=== PATIENT | male | born 1950 | race Caucasian/White ===

== ENCOUNTER 2017-12-12 13:20 | Observation (INO) | payer MEDICARE, OTHER ==
[2017-12-12 13:20] VITALS: BMI 30.4
--- NOTE | 2017-12-12 14:08 | ED PDOC ---
HPI: Hypertension/Hypotension Time Seen by Provider: 12/12/17 13:34 Chief Complaint (Nursing): Palpitations Chief Complaint (Provider): Palpitations History Per: Patient History/Exam Limitations: no limitations Current Symptoms Are (Timing): Still Present Additional Complaint(s): 67 year old male presents to the emergency department with a complaint of experiencing palpitations at home with a mild posterior neck pain that started this morning. then called EMS and when they arrived they found patient to have supraventricular tachycardia (SVT) (has occurred in the past) and treated with Adenosine which slowed down the rate but wind up having a atrial fibrillation rhythm which he had never experienced before. Patient was brought to our facility for further evaluation. Denies pain or discomfort, shortness of breath, chest pain, nausea, vomiting, or diarrhea. Of note, patient admits to having drank 5 shots of whiskey last night while celebrating 's birthday which is unusual for him to drink that much. Patient has a past medical history of hypertension, diabetes, and SVT. Past Medical History Reviewed: Historical Data, Nursing Documentation, Vital Signs Vital Signs: Last Vital Signs Temp 97.8 F 12/12/17 13:35 Pulse 90 12/12/17 13:40 Resp 25 H 12/12/17 13:35 BP 109/76 12/12/17 13:35 Pulse Ox 100 12/12/17 13:35 - Medical History PMH: Cardia Arrhythmia, HTN, Hypercholesterolemia Denies: HIV, Chronic Kidney Disease - Social History Current smoker - smoking cessation education provided: No Ex-Smoker (has not smoked in the last 12 months): Yes (has not smoked in the last 30 years) Alcohol: Occasional Drugs: Denies - Home Medications Home Medications: Ambulatory Orders Medication Instructions Recorded GlipiZIDE [Glucotrol] 10 mg PO DAILY 02/14/15 Lisinopril 5 mg PO DAILY 02/14/15 MetFORMIN [glucoPHAGE] 1,000 mg PO BID 02/14/15 Metoprolol Succinate 1 tab PO QAM 02/14/15 Simvastatin 20 mg PO DAILY 02/14/15 Metoprolol Succinate [Toprol XL] 1 tab PO QPM 11/09/15 - Allergies Allergies/Adverse Reactions: Allergies Allergy/AdvReac Type Severity Reaction Status Date / Time No Known Allergies Allergy Verified 11/08/15 23:14 Review of Systems ROS Statement: Except As Marked, All Systems Reviewed And Found Negative (As per HPI, otherwise negative) Cardiovascular: Positive for: Palpitations. Negative for: Chest Pain Respiratory: Negative for: Shortness of Breath Gastrointestinal: Negative for: Nausea, Vomiting, Diarrhea Musculoskeletal: Positive for: Neck Pain (Mild posterior neck pain) Physical Exam - Reviewed Nursing Documentation Reviewed: Yes Vital Signs Reviewed: Yes - Physical Exam Appears: Positive for: No Acute Distress Skin: Positive for: Normal Color, Warm, Dry Cardiovascular/Chest: Positive for: Other (S1 S2 pulse rate is irregular with a rate about 90 bpm). Negative for: Regular Rate, Rhythm, Murmur Respiratory: Positive for: Normal Breath Sounds. Negative for: Accessory Muscle Use, Respiratory Distress Gastrointestinal/Abdominal: Positive for: Normal Exam, Soft. Negative for: Tenderness Extremity: Positive for: Normal ROM. Negative for: Pedal Edema Neurologic/Psych: Positive for: Alert, Oriented (x3) - ECG O2 Sat by Pulse Oximetry: 100 (RA) Pulse Ox Interpretation: Normal Medical Decision Making Medical Decision Making: Time: 1401 Initial Impression: Palpitations s/p SVT s/p Adenosine now at atrial fibrillation with controlled rate Initial Plan: --There is no previous EKG to compare EKG taken during this visit. With assess with cardiac work up and admission under observation. --EKG --CMP --TSH --Troponin I --CBC w/ diff --PTT & prothrombin --Reevaluation Scribe Attestation: Documented by Sameera Ng, acting as a scribe for Valerie Gonzales MD. Provider Scribe Attestation: All medical record entries made by the Scribe were at my direction and personally dictated by me. I have reviewed the chart and agree that the record accurately reflects my personal performance of the history, physical exam, medical decision making, and the department course for this patient. I have also personally directed, reviewed, and agree with the discharge instructions and disposition. Disposition - Disposition
[2017-12-12 14:59] LABS: BASO % 0.2 % (0.0-2.0); EOS # 0.1 K/uL (0.0-0.7); EOS % 0.9 % (0.0-4.0); HEMOGLOBIN 13.6 g/dL (12.0-18.0); LYMPH # 1.5 K/uL (1.0-4.3); LYMPH % 12.9 % (20.0-40.0); MEAN CELL VOLUME 91.5 fl (80.0-94.0); MEAN CORPUSCULAR HGB CONC 32.8 g/dL (33.0-37.0); MEAN PLATELET VOLUME 8.6 fl (7.2-11.7); MONO # 1.2 K/uL (0.0-0.8); MONO % 10.1 % (0.0-10.0); NEUT # 8.8 K/uL (1.8-7.0); NEUT % 75.9 % (50.0-75.0); RBC 4.55 Mil/uL (4.40-5.90); RED CELL DISTRIBUTION WIDTH 14.1 % (11.5-14.5); WHITE BLOOD COUNT 11.5 K/uL (4.8-10.8)
[2017-12-12 15:01] LABS: ALB/GLOB RATIO 1.3 (1.0-2.1); ALBUMIN 3.6 g/dL (3.5-5.0); ALT/SGPT 47 U/L (21-72); AST/SGOT 36 U/L (17-59); BLOOD UREA NITROGEN 24 mg/dl (9-20); CALCIUM 9.3 mg/dL (8.4-10.2); GFR AFRICAN-AMERICAN > 60; GFR NON-AFRICAN AMERICAN > 60
[2017-12-12 15:09] LABS: PARTIAL THROMBOPLASTIN TIME 29.9 Seconds (25.6-37.1); PROTHROMBIN TIME 11.1 Seconds (9.8-13.1)
--- NOTE | 2017-12-12 16:25 | CP.PCM.HP ---
History of Present Illness - History of Present Illness History of Present Illness: CC: PALPITATIONS HPI: 67M PMH HTN, HLD, DM, SVT presents to ED with a one day history of moderate palpitations, associated with mild fatigue, not ameliorated by anything. Patient drank heavily last night for 's birthday. EMS found pt be in SVT, gave Adenosine x1, pt now in new onset AFib rate 90. Pt on Toprol 100 mg AM, and 50 mg PM, and states he is compliant. Mildly hypotensive 95-103 systolic, will give bolus NS. Otherwise no complaints, obs TELE. Note: CHADSVACS = 3, however patient refusing AC, as he wishes to discuss with his PCP Dr. Tirso Abdi ROS: per HPI all other systems reviewed and neg Present on Admission - Present on Admission Any Indicators Present on Admission: No Past Patient History - Past Medical History & Family History Past Medical History?: Yes - Past Social History Alcohol: Occasional Drugs: Denies - CARDIAC Hx Cardia Arrhythmia: Yes Hx Hypercholesterolemia: Yes Hx Hypertension: Yes - PULMONARY Hx Respiratory Disorders: No - NEUROLOGICAL Hx Neurological Disorder: No - HEENT Hx HEENT Problems: Yes Other/Comment: wears eyeglasses - RENAL Hx Chronic Kidney Disease: No - ENDOCRINE/METABOLIC Hx Endocrine Disorders: Yes Hx Diabetes Mellitus Type 2: Yes - HEMATOLOGICAL/ONCOLOGICAL Hx Human Immunodeficiency Virus (HIV): No - INTEGUMENTARY Hx Dermatological Problems: No - MUSCULOSKELETAL/RHEUMATOLOGICAL Hx Musculoskeletal Disorders: No Hx Falls: No - GASTROINTESTINAL Hx Gastrointestinal Disorders: No - GENITOURINARY/GYNECOLOGICAL Hx Genitourinary Disorders: No - PSYCHIATRIC Hx Psychophysiologic Disorder: No Hx Substance Use: No - SURGICAL HISTORY Hx Surgeries: Yes Hx Cardiac Catheterization: Yes Hx Eye Surgery: Yes (LASER) - ANESTHESIA Hx Anesthesia: Yes Hx Anesthesia Reactions: No Hx Malignant Hyperthermia: No Meds Allergies/Adverse Reactions: Allergies Allergy/AdvReac Type Severity Reaction Status Date / Time No Known Allergies Allergy Verified 11/08/15 23:14 Physical Exam - Constitutional Appears: Non-toxic, No Acute Distress - Head Exam Head Exam: ATRAUMATIC, NORMOCEPHALIC - Eye Exam Eye Exam: EOMI, Normal appearance, PERRL - ENT Exam ENT Exam: Mucous Membranes Moist, Normal Oropharynx - Respiratory Exam Respiratory Exam: Clear to Auscultation Bilateral, NORMAL BREATHING PATTERN. absent: Rales, Rhonchi, Wheezes - Cardiovascular Exam Cardiovascular Exam: Irregular Rhythm, +S1, +S2 - GI/Abdominal Exam GI & Abdominal Exam: Normal Bowel Sounds, Soft. absent: Mass, Tenderness - Extremities Exam Extremities exam: Positive for: normal capillary refill, pedal pulses present - Back Exam Back exam: absent: CVA tenderness (L), CVA tenderness (R) - Neurological Exam Neurological exam: Alert, Oriented x3 - Psychiatric Exam Psychiatric exam: Normal Affect, Normal Mood - Skin Skin Exam: Dry, Normal Color Results - Vital Signs Recent Vital Signs: Last Vital Signs Temp 97.8 F 12/12/17 13:35 Pulse 90 12/12/17 13:40 Resp 25 H 12/12/17 13:35 BP 109/76 12/12/17 13:35 Pulse Ox 100 12/12/17 14:14 - Labs Result Diagrams: 12/12/17 14:30 12/12/17 14:30 Labs: Laboratory Results - last 24 hr 12/12/17 12/12/17 12/12/17 13:51 14:30 14:30 WBC 11.5 H RBC 4.55 Hgb 13.6 Hct 41.6 MCV 91.5 D MCH 30.0 MCHC 32.8 L RDW 14.1 Plt Count 191 MPV 8.6 Neut % (Auto) 75.9 H Lymph % (Auto) 12.9 L [place] % (Auto) 10.1 H Eos % (Auto) 0.9 Baso % (Auto) 0.2 Neut # (Auto) 8.8 H Lymph # (Auto) 1.5 [place] # (Auto) 1.2 H Eos # (Auto) 0.1 Baso # (Auto) 0.0 PT INR APTT Sodium 144 Potassium 3.9 Chloride 110 H Carbon Dioxide 21 L Anion Gap 17 BUN 24 H Creatinine 1.0 Est GFR ( Amer) > 60 Est GFR (Non-Af Amer) > 60 POC Glucose (mg/dL) 219 H Random Glucose 202 H Calcium 9.3 Total Bilirubin 1.0 AST 36 ALT 47 Alkaline Phosphatase 80 Troponin I < 0.0120 Total Protein 6.3 Albumin 3.6 Globulin 2.7 Albumin/Globulin Ratio 1.3 TSH 3rd Generation 3.44 12/12/17 14:30 WBC RBC Hgb Hct MCV MCH MCHC RDW Plt Count MPV Neut % (Auto) Lymph % (Auto) [place] % (Auto) Eos % (Auto) Baso % (Auto) Neut # (Auto) Lymph # (Auto) [place] # (Auto) Eos # (Auto) Baso # (Auto) PT 11.1 INR 1.0 APTT 29.9 Sodium Potassium Chloride Carbon Dioxide Anion Gap BUN Creatinine Est GFR ( Amer) Est GFR (Non-Af Amer) POC Glucose (mg/dL) Random Glucose Calcium Total Bilirubin AST ALT Alkaline Phosphatase Troponin I Total Protein Albumin Globulin Albumin/Globulin Ratio TSH 3rd Generation Assessment & Plan - Assessment and Plan (Free Text) Plan: 67M PMH HTN, HLD, DM, SVT presents to ED with a one day history of moderate palpitations, associated with mild fatigue, not ameliorated by anything. Patient drank heavily last night for 's birthday. EMS found pt be in SVT, gave Adenosine x1, pt now in new onset AFib rate 90. Pt on Toprol 100 mg AM, and 50 mg PM, and states he is compliant. Mildly hypotensive 95-103 systolic, will give bolus NS. Otherwise no complaints, obs TELE. New Onset Afib [id number] = 3 on Toprol 100 mg AM and 50 mg PM pt does not wish to initiate AC until he discusses with his PCP Dr. Tirso Abdi dimer neg, no PE Hypotension 2/2 dehydration Azotemia 2/2 dehydration bolus NS 1 L DM accuchecks iss resume DM meds VTE ppx 'lovenox
[2017-12-12] MEDS ORDERED: Sodium Chloride 0.9% 1,000 ML IV SCH (16:30)
[2017-12-12] MEDS ORDERED: Metoprolol 1 mg/ml Inj IVP STA (16:51)
[2017-12-12] MEDS ORDERED: Metoprolol 1 mg/ml Inj IVP ONE (17:03)
--- NOTE | 2017-12-12 17:04 | ED PDOC ---
- Laboratory Results Result Diagrams: 12/12/17 14:30 12/12/17 14:30 - ECG O2 Sat by Pulse Oximetry: 100 (RA) Disposition - Disposition Forms: [employer] ([employer]) Addendum Addendum: 12/12/17 15:00 Pt signed out by Dr. Gonzales pending labs.
[2017-12-12] MEDS: Enoxaparin 40 mg Syringe SC SCH (17:53)
[2017-12-12] MEDS ORDERED: Metoprolol Succinate 100 mg XL Tab PO SCH (18:00)
[2017-12-13 06:02] LABS: BLOOD UREA NITROGEN 22 mg/dl (9-20); CALCIUM 8.8 mg/dL (8.4-10.2); GFR AFRICAN-AMERICAN > 60; GFR NON-AFRICAN AMERICAN > 60
[2017-12-13 06:11] LABS: HEMOGLOBIN 13.4 g/dL (12.0-18.0); MEAN CELL VOLUME 91.2 fl (80.0-94.0); MEAN CORPUSCULAR HEMOGLOBIN 30.4 pg (27.0-31.0); MEAN CORPUSCULAR HGB CONC 33.3 g/dL (33.0-37.0); RBC 4.4 Mil/uL (4.40-5.90); RED CELL DISTRIBUTION WIDTH 14.2 % (11.5-14.5); WHITE BLOOD COUNT 8.8 K/uL (4.8-10.8)
--- NOTE | 2017-12-13 07:27 | CARD ---
APPROVED REPORT EKG Measurement Heart [id number] <Conclusion> Atrial fibrillation Left axis deviation Abnormal ECG
[2017-12-13] MEDS ORDERED: Metoprolol Succinate 50 mg XL Tab PO SCH ×2 (09:00→21:00)
[2017-12-13] MEDS: Enoxaparin 40 mg Syringe SC SCH (09:09)
--- NOTE | 2017-12-13 10:50 | RAD ---
HISTORY: Palpitations COMPARISON: Comparison chest dated 07/28/2012 FINDINGS: LUNGS: Mild bibasilar atelectasis and PLEURA: As above. No the pneumothorax apparent. CARDIOVASCULAR: Heart size is within range of normal. OSSEOUS STRUCTURES: Mild multilevel degenerative spondylosis of the thoracic spine VISUALIZED UPPER ABDOMEN: Normal. OTHER FINDINGS: None. IMPRESSION: Mild bibasilar atelectasis and or scarring left greater than right
[2017-12-13 12:53] VITALS: TEMP 97.6; O2SAT 98
--- NOTE | 2017-12-13 13:24 | CARD ---
APPROVED REPORT EKG Measurement Heart [id number] <Conclusion> Normal sinus rhythm Left axis deviation Abnormal ECG
--- NOTE | 2017-12-13 14:53 | CP.PCM.CON ---
Past Patient History - Past Medical History & Family History Past Medical History?: Yes - Past Social History Smoking Status: Former Smoker - CARDIAC Hx Cardiac Disorders: Yes Hx Cardia Arrhythmia: Yes (SVT) Hx Hypercholesterolemia: Yes Hx Hypertension: Yes - PULMONARY Hx Respiratory Disorders: No - NEUROLOGICAL Hx Neurological Disorder: No - HEENT Hx HEENT Problems: No - RENAL Hx Chronic Kidney Disease: No - ENDOCRINE/METABOLIC Hx Endocrine Disorders: Yes Hx Diabetes Mellitus Type 2: Yes - HEMATOLOGICAL/ONCOLOGICAL Hx Blood Disorders: No Hx Human Immunodeficiency Virus (HIV): No - INTEGUMENTARY Hx Dermatological Problems: No - MUSCULOSKELETAL/RHEUMATOLOGICAL Hx Musculoskeletal Disorders: No Hx Falls: No - GASTROINTESTINAL Hx Gastrointestinal Disorders: No - GENITOURINARY/GYNECOLOGICAL Hx Genitourinary Disorders: No - PSYCHIATRIC Hx Psychophysiologic Disorder: No Hx Substance Use: No - SURGICAL HISTORY Hx Surgeries: Yes Hx Cardiac Catheterization: Yes Hx Eye Surgery: Yes (LASER) - ANESTHESIA Hx Anesthesia: Yes Hx Anesthesia Reactions: No Hx Malignant Hyperthermia: No Meds Allergies/Adverse Reactions: Allergies Allergy/AdvReac Type Severity Reaction Status Date / Time No Known Allergies Allergy Verified 11/08/15 23:14 - Medications Medications: Current Medications Apixaban (Eliquis) 5 mg PO BID [facility] PRN Reason: Protocol Atorvastatin Calcium (Lipitor) 10 mg PO DAILY [facility] Last Admin: 12/13/17 09:08 Dose: 10 mg Diltiazem HCl (Cardizem) 60 mg PO Q6 [facility] Glipizide (Glucotrol) 10 mg PO DAILY [facility] Last Admin: 12/13/17 09:08 Dose: 10 mg Metoprolol Succinate (Toprol Xl) 50 mg PO Q12 [facility] Results - Vital Signs Recent Vital Signs: Last Vital Signs Temp 97.6 F 12/13/17 12:52 Pulse 79 12/13/17 12:52 Resp 20 12/13/17 12:52 BP 128/66 12/13/17 12:52 Pulse Ox 98 12/13/17 12:52 - Labs Result Diagrams: 12/13/17 04:20 12/13/17 04:20 Labs: Laboratory Results - last 24 hr 12/12/17 12/12/17 12/12/17 14:30 14:30 14:30 WBC 11.5 H RBC 4.55 Hgb 13.6 Hct 41.6 MCV 91.5 D MCH 30.0 MCHC 32.8 L RDW 14.1 Plt Count 191 MPV 8.6 Neut % (Auto) 75.9 H Lymph % (Auto) 12.9 L [place] % (Auto) 10.1 H Eos % (Auto) 0.9 Baso % (Auto) 0.2 Neut # (Auto) 8.8 H Lymph # (Auto) 1.5 [place] # (Auto) 1.2 H Eos # (Auto) 0.1 Baso # (Auto) 0.0 PT 11.1 INR 1.0 APTT 29.9 D-Dimer, Quantitative Sodium 144 Potassium 3.9 Chloride 110 H Carbon Dioxide 21 L Anion Gap 17 BUN 24 H Creatinine 1.0 Est GFR ( Amer) > 60 Est GFR (Non-Af Amer) > 60 POC Glucose (mg/dL) Random Glucose 202 H Calcium 9.3 Total Bilirubin 1.0 AST 36 ALT 47 Alkaline Phosphatase 80 Troponin I < 0.0120 Total Protein 6.3 Albumin 3.6 Globulin 2.7 Albumin/Globulin Ratio 1.3 TSH 3rd Generation 3.44 12/12/17 12/12/17 12/13/17 15:21 21:56 04:20 WBC 8.8 RBC 4.40 Hgb 13.4 Hct 40.1 MCV 91.2 MCH 30.4 MCHC 33.3 RDW 14.2 Plt Count 206 MPV Neut % (Auto) Lymph % (Auto) [place] % (Auto) Eos % (Auto) Baso % (Auto) Neut # (Auto) Lymph # (Auto) [place] # (Auto) Eos # (Auto) Baso # (Auto) PT INR APTT D-Dimer, Quantitative 139 Sodium Potassium Chloride Carbon Dioxide Anion Gap BUN Creatinine Est GFR ( Amer) Est GFR (Non-Af Amer) POC Glucose (mg/dL) 118 H Random Glucose Calcium Total Bilirubin AST ALT Alkaline Phosphatase Troponin I Total Protein Albumin Globulin Albumin/Globulin Ratio TSH 3rd Generation 12/13/17 12/13/17 12/13/17 04:20 05:57 11:50 WBC RBC Hgb Hct MCV MCH MCHC RDW Plt Count MPV Neut % (Auto) Lymph % (Auto) [place] % (Auto) Eos % (Auto) Baso % (Auto) Neut # (Auto) Lymph # (Auto) [place] # (Auto) Eos # (Auto) Baso # (Auto) PT INR APTT D-Dimer, Quantitative Sodium 143 Potassium 3.9 Chloride 108 H Carbon Dioxide 24 Anion Gap 15 BUN 22 H Creatinine 0.8 Est GFR ( Amer) > 60 Est GFR (Non-Af Amer) > 60 POC Glucose (mg/dL) 143 H 202 H Random Glucose 128 H Calcium 8.8 Total Bilirubin AST ALT Alkaline Phosphatase Troponin I Total Protein Albumin Globulin Albumin/Globulin Ratio TSH 3rd Generation Assessment & Plan (1) Paroxysmal A-fib Status: Acute (2) Lightheadedness Status: Acute (3) Palpitations Status: Acute (4) Diabetes mellitus Status: Acute (5) HTN (hypertension) Status: Acute (6) Hyperlipidemia Status: Acute - Assessment and Plan (Free Text) Plan: PT HAS HAD PAF FOR MULTIPLE YEARS. HIS ECHO SHOWS LAE, MR, MILD LVH THEREFOR HE SHOULD BE ON ANTICOAGULATION. WILL START ELIQUIS. ALSO LOWER DOSES OF METOPROLOL AND UP TITRATE CARDIZEM. REPLEAT LYTES. WILL FOLLOW
[2017-12-13 16:25] VITALS: PULSE 71; RESP 19
--- NOTE | 2017-12-13 16:29 | CP.PCM.DIS ---
Provider - Provider Date of Admission: 12/12/17 16:53 Attending physician: Queneie Guevara DO Consults: Dr Kat Time Spent in preparation of Discharge (in minutes): 25 Diagnosis - Discharge Diagnosis (1) Paroxysmal A-fib Status: Acute Comment: put on Eliquis starting tomorrow 5mg PO BID (2) HTN (hypertension) Status: Chronic Comment: BP stable. on Lisinopril and Toprol XL (3) Diabetes mellitus Status: Chronic Comment: BS controlled. continue Metformin and Glucotrol Hospital Course - Lab Results Lab Results: Most Recent Lab Values WBC 8.8 K/uL (4.8-10.8) 12/13/17 04:20 RBC 4.40 Mil/uL (4.40-5.90) 12/13/17 04:20 Hgb 13.4 g/dL (12.0-18.0) 12/13/17 04:20 Hct 40.1 % (35.0-51.0) 12/13/17 04:20 MCV 91.2 fl (80.0-94.0) 12/13/17 04:20 MCH 30.4 pg (27.0-31.0) 12/13/17 04:20 MCHC 33.3 g/dL (33.0-37.0) 12/13/17 04:20 RDW 14.2 % (11.5-14.5) 12/13/17 04:20 Plt Count 206 K/uL (130-400) 12/13/17 04:20 MPV 8.6 fl (7.2-11.7) 12/12/17 14:30 Neut % (Auto) 75.9 % (50.0-75.0) H 12/12/17 14:30 Lymph % (Auto) 12.9 % (20.0-40.0) L 12/12/17 14:30 [place] % (Auto) 10.1 % (0.0-10.0) H 12/12/17 14:30 Eos % (Auto) 0.9 % (0.0-4.0) 12/12/17 14:30 Baso % (Auto) 0.2 % (0.0-2.0) 12/12/17 14:30 Neut # (Auto) 8.8 K/uL (1.8-7.0) H 12/12/17 14:30 Lymph # (Auto) 1.5 K/uL (1.0-4.3) 12/12/17 14:30 [place] # (Auto) 1.2 K/uL (0.0-0.8) H 12/12/17 14:30 Eos # (Auto) 0.1 K/uL (0.0-0.7) 12/12/17 14:30 Baso # (Auto) 0.0 K/uL (0.0-0.2) 12/12/17 14:30 PT 11.1 Seconds (9.8-13.1) 12/12/17 14:30 INR 1.0 (0.9-1.2) 12/12/17 14:30 APTT 29.9 Seconds (25.6-37.1) 12/12/17 14:30 D-Dimer, Quantitative 139 ng/mlDDU (0-230) 12/12/17 15:21 Sodium 143 mmol/l (132-148) 12/13/17 04:20 Potassium 3.9 MMOL/L (3.6-5.0) 12/13/17 04:20 Chloride 108 mmol/L (98-107) H 12/13/17 04:20 Carbon Dioxide 24 mmol/L (22-30) 12/13/17 04:20 Anion Gap 15 (10-20) 12/13/17 04:20 BUN 22 mg/dl (9-20) H 12/13/17 04:20 Creatinine 0.8 mg/dl (0.8-1.5) 12/13/17 04:20 Est GFR ( Amer) > 60 12/13/17 04:20 Est GFR (Non-Af Amer) > 60 12/13/17 04:20 POC Glucose (mg/dL) 135 mg/dL (65-110) H 12/13/17 15:59 Random Glucose 128 mg/dL (75-110) H 12/13/17 04:20 Calcium 8.8 mg/dL (8.4-10.2) 12/13/17 04:20 Total Bilirubin 1.0 mg/dl (0.2-1.3) 12/12/17 14:30 AST 36 U/L (17-59) 12/12/17 14:30 ALT 47 U/L (21-72) 12/12/17 14:30 Alkaline Phosphatase 80 U/L (38-126) 12/12/17 14:30 Troponin I < 0.0120 ng/mL (0.00-0.120) 12/12/17 14:30 Total Protein 6.3 G/DL (6.3-8.2) 12/12/17 14:30 Albumin 3.6 g/dL (3.5-5.0) 12/12/17 14:30 Globulin 2.7 gm/dL (2.2-3.9) 12/12/17 14:30 Albumin/Globulin Ratio 1.3 (1.0-2.1) 12/12/17 14:30 TSH 3rd Generation 3.44 mIU/ML (0.46-4.68) 12/12/17 14:30 - Hospital Course Hospital Course: 67 yo male with history of HTN, HLD, DM and SVT came in with palpitation associated with SOB, fatigue and dizziness. Initial EKG showed AFib with regular rate. Admitted drinking alcohol heavily the previous night. [place] better today with repeat EKG showing NSR. 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 Agreed to discharge patient today. He will follow up with him in 2 weeks. Discharge Exam - Head Exam Head Exam: ATRAUMATIC, NORMOCEPHALIC - Eye Exam Eye Exam: absent: Scleral icterus - ENT Exam ENT Exam: Mucous Membranes Moist - Respiratory Exam Respiratory Exam: absent: Wheezes, Respiratory Distress - Cardiovascular Exam Cardiovascular Exam: REGULAR RHYTHM, +S1, +S2 - GI/Abdominal Exam GI & Abdominal Exam: Soft. absent: Tenderness - Rectal Exam Rectal Exam: Deferred - Neurological Exam Neurological exam: Alert, Oriented x3 - Psychiatric Exam Psychiatric exam: Normal Affect - Skin Skin Exam: Dry, Intact Discharge Plan - Discharge Medications Prescriptions: Apixaban [Eliquis] 5 mg PO BID #28 tablet Metoprolol Succinate [Toprol XL] 100 mg PO BID #28 tab - Follow Up Plan Condition: FAIR Disposition: HOME/ ROUTINE Additional Instructions: follow up with Dr Kat in 2 weeks
[2017-12-13 17:21] VITALS: BP 128/71
--- NOTE | 2017-12-13 20:26 | CARD ---
APPROVED REPORT EXAM: Two-dimensional and M-mode echocardiogram with Doppler and color Doppler. Other Information Quality : GoodRhythm : NSR INDICATION Atrial Fibrillation 2D DIMENSIONS IVSd1.73 (0.7-1.1cm)LVDd3.94 (3.9-5.9cm) LVOT Diameter2.40 (1.8-2.4cm)PWd1.00 (0.7-1.1cm) IVSs1.58 (0.8-1.2cm)LVDs2.12 (2.5-4.0cm) FS (%) 46.2 %PWs1.66 (0.8-1.2cm) M-Mode DIMENSIONS Left Atrium (MM)5.00 (2.5-4.0cm)IVSd1.32 (0.7-1.1cm) Aortic Root3.29 (2.2-3.7cm)LVDd4.76 (4.0-5.6cm) Aortic Cusp Exc.2.06 (1.5-2.0cm)PWd1.29 (0.7-1.1cm) IVSs1.47 cmFS (%) 28 % LVDs3.44 (2.0-3.8cm)PWs1.53 cm Aortic Valve AI P 1/2 [id number] Mitral Valve MV E Reyjespr80.8cm/sMV DECEL [id number] A Xfskenny76.9cm/s MV [id number]/A ratio1.5MVA (PHT)4.58cm2 TDI Lateral E' Peak V12.47cm/sMedial E' Peak V9.04cm/sE/Lateral E'4.2 E/Medial E'5.8 Pulmonary Valve PV Peak Mhkihusq38.8cm/s LEFT VENTRICLE The left ventricle is normal in size. There is mild concentric left ventricular hypertrophy. The left ventricular function is normal. The left ventricular ejection fraction is - 55%. There is normal LV segmental wall motion. The left ventricular diastolic function is normal. No left ventricle thrombus noted on this study. There is no ventricular septal defect visualized. There is no left ventricular aneurysm. There is no mass noted in the left ventricle. RIGHT VENTRICLE The right ventricle is normal size. There is normal right ventricular wall thickness. The right ventricular systolic function is normal. ATRIA The left atrium is mildly dilated. There is no thrombus suspected in the left atrium. The right atrium size is normal. The interatrial septum is intact with no evidence for an atrial septal defect. AORTIC VALVE The aortic valve is mildly calcified. There is moderate aortic regurgitation. There is no aortic valvular stenosis. MITRAL VALVE The mitral valve is normal in structure. There is no evidence of mitral valve prolapse. There is no mitral valve stenosis. Mitral regurgitation is mild. TRICUSPID VALVE The tricuspid valve is normal in structure. There is no tricuspid valve regurgitation noted. There is no tricuspid valve prolapse or vegetation. There is no tricuspid valve stenosis. PULMONIC VALVE The pulmonary valve is normal in structure. There is no pulmonic valvular regurgitation. GREAT VESSELS The aortic root is normal in size. The IVC collapses <50% with inspiration. PERICARDIAL EFFUSION The pericardium appears normal. There is no pleural effusion. <Conclusion> The left ventricle is normal in size. There is mild concentric left ventricular hypertrophy. The left ventricular function is normal. The left ventricular ejection fraction is - 55%. The left atrium is mildly dilated. The aortic valve is mildly calcified and there is moderate aortic regurgitation. The mitral valve is normal in structure and there is mild mitral regurgitation.
== END 2017-12-13 18:00 | disposition home or self-care (01) ==
LOC: H.ER 13:20 → H.ERHOLD 16:53 → H.TEL 21:39
PROVIDERS: ADMIT Student in an Organized Health Care Education/Training Program; ATTEND Student in an Organized Health Care Education/Training Program
DX: I48.0 Paroxysmal atrial fibrillation (principal); I10 Essential (primary) hypertension; E11.9 Type 2 diabetes mellitus without complications; E78.00 Pure hypercholesterolemia, unspecified; E78.5 Hyperlipidemia, unspecified; E86.0 Dehydration; Z87.891 Personal history of nicotine dependence
CPT/HCPCS: 36415; 71045; 80048; 80053; 82948; 84443; 84484; 85025; 85027; 85378; 85610; 85730; 93005; 93306; 96360; 96372; 96374; 99285; G0378; J1650; J7040

== ENCOUNTER 2018-01-27 08:29 | Day surgery (SDC) | payer MEDICARE ==
[2018-01-25 09:38] VITALS: BMI 28.1
[2018-01-27] MEDS ORDERED: Midazolam 2 MG/2 ML VIAL ONE (09:54)
[2018-01-27] MEDS ORDERED: Propofol 10 mg/ml Inj (20 ML) ONE (09:54)
[2018-01-27] MEDS ORDERED: Lidocaine PF 2% (5 ml) Inj (For Cardiac Arrhy) IV ONE (09:54)
[2018-01-27] MEDS ORDERED: Lactated Ringer's 500 ML IV ONE (11:10)
[2018-01-27 12:42] VITALS: TEMP 97
[2018-01-27 13:12] VITALS: BP 120/70; PULSE 80; RESP 16; O2SAT 97
== END 2018-01-27 12:25 | disposition home or self-care (01) ==
LOC: H.ENDO 08:29
PROVIDERS: ATTEND Internal Medicine Gastroenterology
DX: Z86.010 Personal history of colon polyps (principal); I48.91 Unspecified atrial fibrillation; E11.9 Type 2 diabetes mellitus without complications; I10 Essential (primary) hypertension; K21.9 Gastro-esophageal reflux disease without esophagitis; E66.9 Obesity, unspecified; K57.30 Diverticulosis of large intestine without perforation or abscess without bleeding
CPT/HCPCS: 82948; G0105; J2250; J2704; J7120

== ENCOUNTER 2018-03-31 19:36 | Observation (INO) | payer MEDICARE ==
[2018-03-31 19:36] VITALS: BMI 28.1
--- NOTE | 2018-03-31 20:19 | ED PDOC ---
HPI: Chest Pain Time Seen by Provider: 03/31/18 19:53 Chief Complaint (Nursing): Palpitations History Per: Patient History/Exam Limitations: no limitations Onset/Duration Of Symptoms: Hrs (1) Current Symptoms Are (Timing): Better Additional Complaint(s): Hx of DM, HTN, previous SVT presenting with palpitations, states that it started one hour prior to arrival while at rest, not associated with chest pain , shortness of breath, dizziness, lightheadedness, or any other symptoms. States he has had this problem before and was given "a medicine" and remembers being administered 12mg of this medicine. Denies nausea, vomiting, recent illnesses. Past Medical History Reviewed: Historical Data, Nursing Documentation Vital Signs: Last Vital Signs Temp 98.0 F 03/31/18 19:48 Pulse 105 H 03/31/18 19:59 Resp 22 03/31/18 19:59 BP 88/51 L 03/31/18 19:59 Pulse Ox 98 03/31/18 20:26 - Medical History PMH: Cardia Arrhythmia (A-FIB), Diabetes, HTN, Hypercholesterolemia Denies: HIV, Chronic Kidney Disease - Family History Family History: States: Unknown Family Hx - Home Medications Home Medications: Ambulatory Orders Medication Instructions Recorded GlipiZIDE [Glucotrol] 10 mg PO DAILY 02/14/15 MetFORMIN [glucoPHAGE] 1,000 mg PO BID 02/14/15 Apixaban [Eliquis] 5 mg PO BID #28 tablet 12/13/17 Metoprolol Succinate [Toprol XL] 100 mg PO BID #28 tab 12/13/17 Aspirin [Aspirin Chewable] 81 mg PO DAILY 01/27/18 Dulaglutide [Trulicity] 0.75 mg SQ QWK 01/27/18 Lisinopril [Zestril] 5 mg PO DAILY 01/27/18 Omeprazole 40 mg PO DAILY 01/27/18 Simvastatin 20 mg PO DAILY 01/27/18 - Allergies Allergies/Adverse Reactions: Allergies Allergy/AdvReac Type Severity Reaction Status Date / Time No Known Allergies Allergy Verified 11/08/15 23:14 Review of Systems ROS Statement: Except As Marked, All Systems Reviewed And Found Negative Cardiovascular: Positive for: Palpitations Physical Exam - Reviewed Nursing Documentation Reviewed: Yes Vital Signs Reviewed: Yes - Physical Exam Appears: Positive for: Well, Non-toxic, No Acute Distress Head Exam: Positive for: ATRAUMATIC, NORMAL INSPECTION, NORMOCEPHALIC Skin: Positive for: Normal Color, Warm, DRY Eye Exam: Positive for: EOMI, Normal appearance, PERRL ENT: Positive for: Normal ENT Inspection Neck: Positive for: Normal, Painless ROM Cardiovascular/Chest: Positive for: Tachycardia. Negative for: Irregularly Irregular Respiratory: Positive for: CNT, Normal Breath Sounds Gastrointestinal/Abdominal: Positive for: Normal Exam, Soft Back: Positive for: Normal Inspection Extremity: Positive for: Normal ROM Neurologic/Psych: Positive for: Alert, Oriented - Laboratory Results Result Diagrams: 03/31/18 20:00 03/31/18 20:05 - ECG ECG Rhythm: Positive for: SVT O2 Sat by Pulse Oximetry: 98 Pulse Ox Interpretation: Normal - Critical Care Total Time (In Min): 60 Documented Critical Care: Time excludes all time spent performint seperately billable procedures Medical Decision Making Medical Decision Makin A/P: Hx of HTN, DM, SVT presenting with palpitations -patient was placed in room immediatley and placed on monitor, EKG showed SVT -patient was given 6mg of adenosine without response and then 12mg -initially was preparing to shock given hypotension but patient was well appearing and BP started improving spontaneously -patient currently s/p adenonsine and feeling well -awaiting labs, cards consult, admit for telemetry monitoring and continous BP monitoring 930PM -Feeling better, BP systolic 99 -case discussed with patient's superintendent stations Dr. Dowling who agrees with management , agrees to admission -case discussed with Dr. Tillman who accepts patient Disposition - Clinical Impression Clinical Impression: SVT (supraventricular tachycardia) - Disposition Disposition Time: 21:00 Condition: IMPROVED
[2018-03-31 20:30] LABS: BASO # 0.1 K/uL (0.0-0.2); BASO % 0.5 % (0.0-2.0); EOS # 0.1 K/uL (0.0-0.7); EOS % 1.2 % (0.0-4.0); HEMOGLOBIN 14.1 g/dL (12.0-18.0); LYMPH # 2.2 K/uL (1.0-4.3); LYMPH % 21.7 % (20.0-40.0); MEAN CELL VOLUME 91.8 fl (80.0-94.0); MEAN CORPUSCULAR HGB CONC 33.8 g/dL (33.0-37.0); MEAN PLATELET VOLUME 8.7 fl (7.2-11.7); MONO # 0.7 K/uL (0.0-0.8); NEUT # 7.1 K/uL (1.8-7.0); NEUT % 69.6 % (50.0-75.0); NRBC % 0.1 % (0.0-0.0); RBC 4.54 Mil/uL (4.40-5.90); RED CELL DISTRIBUTION WIDTH 13.4 % (11.5-14.5); WHITE BLOOD COUNT 10.1 K/uL (4.8-10.8)
[2018-03-31 20:44] LABS: BLOOD UREA NITROGEN 22 mg/dl (9-20); CALCIUM 10.2 mg/dL (8.4-10.2); GFR AFRICAN-AMERICAN 49; GFR NON-AFRICAN AMERICAN 40
[2018-03-31 21:17] LABS: INR 1.1 (0.9-1.2); PARTIAL THROMBOPLASTIN TIME 32.4 Seconds (25.6-37.1); PROTHROMBIN TIME 12.1 Seconds (9.8-13.1)
--- NOTE | 2018-03-31 21:48 | CP.PCM.HP ---
History of Present Illness - History of Present Illness History of Present Illness: PMD: Max Abdi MD Chief Complaint: Palpitations The patient was seen and examined in the ED with his and daughter present. HPI: This is a 68 years old male with hx of HTN, DM II, SVT and Paroxysmals of Atrial Fibrillation who came with a one hour hx of Palpitation, dizziness, Blurred vision and SOB beginning at rest. There was no significant chest pain, nausea, vomits nor fever. He has had these episodes many times in the past and is been followed by the Coordinator Volunteer Services. In the ED the EKg showed a HR was 158/min and the patient was treated With Adenosine 6mg and then 12mg. 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 absent: Diplopia , Floaters, Photophobia Ears: absent: Decreased Hearing, Ear Discharge, Ear Pain, Tinnitus Nose/Mouth/Throat: absent: Epistaxis, Nasal Congestion, Nasal Discharge, Sinus Pain, Sinus Pressure - Cardiovascular Cardiovascular: Dyspnea, Palpitations. absent: Chest Pain, Leg Edema - Respiratory Respiratory: Dyspnea. absent: Cough, Wheezing, Stridor, Chest Congestion - Gastrointestinal Gastrointestinal: absent: Abdominal Pain, Constipation, Diarrhea, Nausea, Vomiting - Genitourinary Genitourinary: absent: Dysuria, Flank Pain, Urinary Frequency - Musculoskeletal Musculoskeletal: Arthralgias. absent: Joint Swelling, Muscle Cramps, Muscle Weakness - Integumentary Integumentary: absent: Pruritus, Rash, Skin Ulcer, Sores, Striae, Swelling - Neurological Neurological: Dizziness. absent: Confusion, Focal Weakness, Headaches, Loss of Vision, Weakness - Psychiatric Psychiatric: absent: Anxiety, Depression, Panic Attacks - Endocrine Endocrine: absent: Palpitations, Polydipsia, Polyphagia, Polyuria - Hematologic/Lymphatic Hematologic: absent: Easy Bleeding, Easy Bruising Past Patient History - Past Medical History & Family History Past Medical History?: Yes - Past Social History Smoking Status: Former Smoker Chewing Tobacco Use: No Cigar Use: No Alcohol: Occasional Home Situation {Lives}: With Family - CARDIAC Hx Cardiac Disorders: Yes Hx Cardia Arrhythmia: Yes (A-FIB/SVT) Hx Hypercholesterolemia: Yes Hx Hypertension: Yes - PULMONARY Hx Respiratory Disorders: No - NEUROLOGICAL Hx Neurological Disorder: No - HEENT Hx HEENT Problems: No - RENAL Hx Chronic Kidney Disease: No - ENDOCRINE/METABOLIC Hx Endocrine Disorders: Yes Hx Diabetes Mellitus Type 1: Yes - HEMATOLOGICAL/ONCOLOGICAL Hx Blood Disorders: No Hx Human Immunodeficiency Virus (HIV): No - INTEGUMENTARY Hx Dermatological Problems: No - MUSCULOSKELETAL/RHEUMATOLOGICAL Hx Musculoskeletal Disorders: No - GASTROINTESTINAL Hx Gastrointestinal Disorders: No - GENITOURINARY/GYNECOLOGICAL Hx Genitourinary Disorders: No - PSYCHIATRIC Hx Psychophysiologic Disorder: No Hx Emotional Abuse: No Hx Physical Abuse: No Hx Substance Use: No - SURGICAL HISTORY Hx Surgeries: Yes Hx Eye Surgery: Yes (RT) - ANESTHESIA Hx Anesthesia: Yes Hx Anesthesia Reactions: No Hx Malignant Hyperthermia: No Meds Allergies/Adverse Reactions: Allergies Allergy/AdvReac Type Severity Reaction Status Date / Time No Known Allergies Allergy Verified 11/08/15 23:14 Physical Exam - Constitutional Appears: No Acute Distress - Head Exam Head Exam: ATRAUMATIC, NORMAL INSPECTION, NORMOCEPHALIC - Eye Exam Eye Exam: EOMI, Normal appearance Pupil Exam: NORMAL ACCOMODATION, PERRL - ENT Exam ENT Exam: Mucous Membranes Moist, Normal Exam, Normal External Ear Exam, Normal Oropharynx - Neck Exam Neck exam: Positive for: Full Rom, Normal Inspection. Negative for: Lymphadenopathy, Tenderness - Respiratory Exam Respiratory Exam: Clear to Auscultation Bilateral. absent: Rales, Rhonchi, Wheezes - Cardiovascular Exam Cardiovascular Exam: REGULAR RHYTHM, RRR, +S1, +S2 - GI/Abdominal Exam GI & Abdominal Exam: Normal Bowel Sounds, Soft. absent: Mass, Organomegaly, Tenderness - Rectal Exam Rectal Exam: Deferred - Extremities Exam Extremities exam: Positive for: full ROM, normal inspection. Negative for: calf tenderness, pedal edema - Back Exam Back exam: NORMAL INSPECTION. absent: CVA tenderness (L), CVA tenderness (R) - Neurological Exam Neurological exam: Alert, CN II-XII Intact, Oriented x3, Reflexes Normal - Psychiatric Exam Psychiatric exam: Normal Affect, Normal Mood - Skin Skin Exam: Dry, Intact, Normal Color, Warm Results - Vital Signs Recent Vital Signs: Last Vital Signs Temp 98.0 F 03/31/18 19:48 Pulse 105 H 03/31/18 19:59 Resp 22 03/31/18 19:59 BP 88/51 L 03/31/18 19:59 Pulse Ox 98 03/31/18 20:26 - Labs Result Diagrams: 03/31/18 20:00 03/31/18 20:05 Labs: Laboratory Results - last 24 hr 03/31/18 03/31/18 03/31/18 20:00 20:00 20:05 WBC 10.1 RBC 4.54 Hgb 14.1 Hct 41.6 MCV 91.8 MCH 31.0 MCHC 33.8 RDW 13.4 Plt Count 190 MPV 8.7 Neut % (Auto) 69.6 Lymph % (Auto) 21.7 [place] % (Auto) 7.0 Eos % (Auto) 1.2 Baso % (Auto) 0.5 Neut # (Auto) 7.1 H Lymph # (Auto) 2.2 [place] # (Auto) 0.7 Eos # (Auto) 0.1 Baso # (Auto) 0.1 PT INR APTT Sodium 140 Potassium 4.6 Chloride 103 Carbon Dioxide 25 Anion Gap 17 BUN 22 H Creatinine 1.7 H Est GFR ( Amer) 49 Est GFR (Non-Af Amer) 40 Random Glucose 278 H Calcium 10.2 Troponin I < 0.0120 Blood Type O POSITIVE Antibody Screen Negative BBK History Checked No verified bt 03/31/18 20:30 WBC RBC Hgb Hct MCV MCH MCHC RDW Plt Count MPV Neut % (Auto) Lymph % (Auto) [place] % (Auto) Eos % (Auto) Baso % (Auto) Neut # (Auto) Lymph # (Auto) [place] # (Auto) Eos # (Auto) Baso # (Auto) PT 12.1 INR 1.1 APTT 32.4 Sodium Potassium Chloride Carbon Dioxide Anion Gap BUN Creatinine Est GFR ( Amer) Est GFR (Non-Af Amer) Random Glucose Calcium Troponin I Blood Type Antibody Screen BBK History Checked - Impressions Impression: Wide complex regular tachycardia 158/min - Imaging and Cardiology Chest x-ray Status: Image reviewed by me Additional comment: Increased cardiac silhouette No infiltrate Assessment & Plan - Assessment and Plan (Free Text) Assessment: #. SVT #. DM II with hyperglycemia #. Azotemia #. Hx of P A-Fib Plan: 68 years old male with hx of HTN, DM II, SVT and Paroxysmals of Atrial Fibrillation who came with a one hour hx of Palpitation, dizziness, Blurred vision and SOB beginning at rest. In the ED the EKg showed a HR was 158/min and the patient was treated With Adenosine 6mg and then 12mg. #. SVT which is recurrent and converts with Adenosine - Consult Dr Dowling Coordinator [employer] Services - Telemetry monitoring - Follow Electrolytes - Follow Cardiac enzymes - Restart Metoprolol when blood pressure allows ECHO 12/13/17 LV function normal LVEF 55% Left Atria mildely dilated Moderate AR Mild MR #. DM II with hyperglycemia - Regular insulin Sliding scale according to accucheck - Glucotrol - Glucophage - Follow lactic Acid if elevated Hold Metformin #. Azotemia probably pre-renal - IV fluids - Follow renal labs #. Hx of P A-Fib - Metoprolol for Rate control - Apixaban as anticoagulant #. DVT prophylaxis: The patient is on Apixaban #. Code Status; Full - Date & Time Date: 03/31/18 Time: 21:48
[2018-03-31] MEDS ORDERED: Sodium Chloride 0.9% 1,000 ML IV STA (22:15)
[2018-03-31] MEDS: Sodium Chloride 0.9% 1,000 ML IV SCH (23:43)
[2018-04-01 05:38] LABS: BLOOD UREA NITROGEN 23 mg/dl (9-20); CALCIUM 8.8 mg/dL (8.4-10.2); GFR AFRICAN-AMERICAN > 60; GFR NON-AFRICAN AMERICAN > 60
[2018-04-01] MEDS ORDERED: Magnesium Sulfate 1 GM in Dextrose 5% In Water 100 ML IVPB ONE (07:05)
[2018-04-01] MEDS ORDERED: Patient's Own Med (Simvastatin [Simvastatin] 20 MG) PO SCH (09:00)
[2018-04-01] MEDS: Sodium Chloride 0.9% 1,000 ML IV SCH ×2 (09:16→16:55)
[2018-04-01] MEDS: Metoprolol Succinate 100 mg XL Tab PO SCH ×2 (09:19→16:54)
--- NOTE | 2018-04-01 09:34 | RAD ---
PROCEDURE: CHEST RADIOGRAPH, 1 VIEW HISTORY: svt COMPARISON: Chest radiograph dated 12/12/2017. FINDINGS: LUNGS: Clear. PLEURA: No pneumothorax or pleural fluid seen. CARDIOVASCULAR: Cardiomediastinal silhouette stably enlarged. OSSEOUS STRUCTURES: Unchanged. VISUALIZED UPPER ABDOMEN: Normal. OTHER FINDINGS: Overlying pacer pads. IMPRESSION: No active disease.
--- NOTE | 2018-04-01 09:51 | CP.PCM.PN ---
Subjective - Date & Time of Evaluation Date of Evaluation: 04/01/18 Time of Evaluation: 09:00 - Subjective Subjective: Pt feels better now Sinus rhythm on Tele monitoring, HR normal denies CP at present no palpitation lightheadedness resolved no SOB Crea improved BP nor normal no abd pain Objective - Vital Signs/Intake and Output Vital Signs (last 24 hours): Temp Pulse Resp BP Pulse Ox 98.3 F 78 18 133/76 97 04/01/18 08:00 04/01/18 09:20 04/01/18 08:00 04/01/18 09:20 04/01/18 08:00 - Medications Medications: Current Medications Apixaban (Eliquis) 5 mg PO BID [facility] PRN Reason: Protocol Last Admin: 04/01/18 09:20 Dose: 5 mg Aspirin (Aspirin Chewable) 81 mg PO DAILY [facility] Last Admin: 04/01/18 09:19 Dose: 81 mg Atorvastatin Calcium (Lipitor) 10 mg PO DAILY [facility] Last Admin: 04/01/18 09:20 Dose: 10 mg Glipizide (Glucotrol) 10 mg PO DAILY [facility] Sodium Chloride (Sodium Chloride 0.9%) 1,000 mls @ 125 mls/hr IV .Q8H [facility] Stop: 04/01/18 23:05 Last Admin: 04/01/18 09:16 Dose: 125 mls/hr Lisinopril (Zestril) 5 mg PO DAILY [facility] Last Admin: 04/01/18 09:20 Dose: 5 mg Metformin HCl (Glucophage) 1,000 mg PO BID [facility] Metoprolol Succinate (Toprol Xl) 100 mg PO BID [facility] Last Admin: 04/01/18 09:19 Dose: 100 mg - Labs Labs: 03/31/18 20:00 04/01/18 05:07 PT 12.1 Seconds (9.8-13.1) 03/31/18 20:30 INR 1.1 (0.9-1.2) 03/31/18 20:30 APTT 32.4 Seconds (25.6-37.1) 03/31/18 20:30 - Constitutional Appears: Well, Non-toxic, No Acute Distress - Head Exam Head Exam: ATRAUMATIC, NORMAL INSPECTION, NORMOCEPHALIC - Eye Exam Eye Exam: EOMI, Normal appearance, PERRL Pupil Exam: NORMAL ACCOMODATION - ENT Exam ENT Exam: Mucous Membranes Moist, Normal External Ear Exam - Neck Exam Neck Exam: Full ROM. absent: Meningismus - Respiratory Exam Respiratory Exam: NORMAL BREATHING PATTERN. absent: Respiratory Distress - Cardiovascular Exam Cardiovascular Exam: REGULAR RHYTHM, +S1, +S2 - GI/Abdominal Exam GI & Abdominal Exam: Soft, Normal Bowel Sounds. absent: Tenderness - Extremities Exam Extremities Exam: Full ROM, Normal Capillary Refill, Normal Inspection. absent : Calf Tenderness - Back Exam Back Exam: Full ROM. absent: CVA tenderness (L), CVA tenderness (R) - Neurological Exam Neurological Exam: Alert, Awake, CN II-XII Intact, Oriented x3 Neuro motor strength exam: Left Upper Extremity: 5, Right Upper Extremity: 5, Left Lower Extremity: 5, Right Lower Extremity: 5 - Psychiatric Exam Psychiatric exam: Normal Affect, Normal Mood - Skin Skin Exam: Dry, Normal Color, Warm Assessment and Plan - Assessment and Plan (Free Text) Assessment: 68 years old male with hx of HTN, DM II, SVT and Paroxysmal Atrial Fibrillation , came with a one hour hx of Palpitation, dizziness, Blurred vision and SOB beginning at rest. In the ED the EKg showed a HR was 158/min , hypotensive. EKG showed SVT , the patient was treated With Adenosine 6mg and then 12mg. w/c broke the SVT. 1. SVT, recurrent - Consult Dr Dowling [employer] Administrator - Telemetry monitoring - TSH normal, electrolytes normal -cont Metoprolol - Electrophysiology consult -ECHO 12/13/17 LV function normal LVEF 55% Left Atria mildely dilated Moderate AR Mild MR 2. Troponin Elevation proc sec to demand ischemia due to SVT/Hypotension - Cardiology consult- Dr Dowling - pt may need Cardiac cath 3. DM II with hyperglycemia - Regular insulin Sliding scale according to accucheck -cont Glucotrol -d/c Metformin as pt may need Cardiac cath 4. Acute Kidney Injury likely ATN , improved - pt had low BP - d/c Metformin -improved with IVF hydration from 1.7 to 1.1 5. Paroxysmal A Fib - Metoprolol for Rate control - Apixaban as anticoagulant - Sinus rhythm at present #. DVT prophylaxis: The patient is on Apixaban #. Code Status; Full, Surrogate Decision maker - spouse Sharita
--- NOTE | 2018-04-01 10:16 | CARD ---
APPROVED REPORT EKG Measurement Heart [id number] <Conclusion> Normal sinus rhythm Left axis deviation Abnormal ECG
--- NOTE | 2018-04-01 10:23 | CARD ---
APPROVED REPORT EKG Measurement Heart [id number] [place] [id number] <Conclusion> Sinus tachycardia with premature atrial complexes Left axis deviation Abnormal ECG
--- NOTE | 2018-04-01 15:53 | CP.PCM.CON ---
History of Present Illness - History of Present Illness History of Present Illness: Consultation for SVT HPI: 68 year old male with hx of HTN, DM, SVT presenting with an episode of dizziness while he was fixing his airconditioner. In the ED he was noted to be tachycardic with SBP in 60's. Review of Systems - Review of Systems Systems not reviewed;Unavailable: Acuity of Condition - Constitutional Constitutional: As Per HPI - EENT Eyes: As Per HPI Ears: As Per HPI Nose/Mouth/Throat: As Per HPI - Cardiovascular Cardiovascular: As Per HPI - Respiratory Respiratory: As Per HPI - Gastrointestinal Gastrointestinal: As Per HPI - Genitourinary Genitourinary: As Per HPI - Reproductive: Male Reproductive:Male: As Per HPI - Musculoskeletal Musculoskeletal: As Per HPI - Integumentary Integumentary: As Per HPI - Neurological Neurological: As Per HPI - Psychiatric Psychiatric: As Per HPI - Endocrine Endocrine: As Per HPI - Hematologic/Lymphatic Hematologic: As Per HPI Past Patient History - Past Medical History & Family History Past Medical History?: Yes - Past Social History Smoking Status: Former Smoker - CARDIAC Hx Cardiac Disorders: Yes - PULMONARY Hx Respiratory Disorders: No - NEUROLOGICAL Hx Neurological Disorder: No - HEENT Hx HEENT Problems: No - RENAL Hx Chronic Kidney Disease: No - ENDOCRINE/METABOLIC Hx Endocrine Disorders: Yes - HEMATOLOGICAL/ONCOLOGICAL Hx Blood Disorders: No - INTEGUMENTARY Hx Dermatological Problems: No - MUSCULOSKELETAL/RHEUMATOLOGICAL Hx Musculoskeletal Disorders: No - GASTROINTESTINAL Hx Gastrointestinal Disorders: No - GENITOURINARY/GYNECOLOGICAL Hx Genitourinary Disorders: No - PSYCHIATRIC Hx Psychophysiologic Disorder: No - SURGICAL HISTORY Hx Surgeries: Yes Hx Eye Surgery: Yes (RT) - ANESTHESIA Hx Anesthesia: Yes Hx Anesthesia Reactions: No Hx Malignant Hyperthermia: No Has any member of the family had a problem w/ anesthesia?: No Meds Allergies/Adverse Reactions: Allergies Allergy/AdvReac Type Severity Reaction Status Date / Time No Known Allergies Allergy Verified 11/08/15 23:14 - Medications Medications: Current Medications Apixaban (Eliquis) 5 mg PO BID [facility] PRN Reason: Protocol Last Admin: 04/01/18 09:20 Dose: 5 mg Aspirin (Aspirin Chewable) 81 mg PO DAILY [facility] Last Admin: 04/01/18 09:19 Dose: 81 mg Atorvastatin Calcium (Lipitor) 10 mg PO DAILY [facility] Last Admin: 04/01/18 09:20 Dose: 10 mg Glipizide (Glucotrol) 10 mg PO DAILY [facility] Last Admin: 04/01/18 09:54 Dose: 10 mg Sodium Chloride (Sodium Chloride 0.9%) 1,000 mls @ 125 mls/hr IV .Q8H [facility] Stop: 04/01/18 23:05 Last Admin: 04/01/18 09:16 Dose: 125 mls/hr Lisinopril (Zestril) 5 mg PO DAILY [facility] Last Admin: 04/01/18 09:20 Dose: 5 mg Metoprolol Succinate (Toprol Xl) 100 mg PO BID [facility] Last Admin: 04/01/18 09:19 Dose: 100 mg Physical Exam - Constitutional Appears: Well - Head Exam Head Exam: ATRAUMATIC, NORMAL INSPECTION, NORMOCEPHALIC - Eye Exam Eye Exam: EOMI, Normal appearance, PERRL Pupil Exam: NORMAL ACCOMODATION, PERRL - ENT Exam ENT Exam: Mucous Membranes Moist, Normal Exam - Neck Exam Neck exam: Positive for: Normal Inspection - Respiratory Exam Respiratory Exam: Clear to Auscultation Bilateral, NORMAL BREATHING PATTERN - Cardiovascular Exam Cardiovascular Exam: REGULAR RHYTHM - GI/Abdominal Exam GI & Abdominal Exam: Normal Bowel Sounds, Soft. absent: Tenderness - Extremities Exam Extremities exam: Positive for: normal inspection - Back Exam Back exam: NORMAL INSPECTION - Neurological Exam Neurological exam: Alert, CN II-XII Intact, Normal Gait, Oriented x3, Reflexes Normal - Psychiatric Exam Psychiatric exam: Normal Affect, Normal Mood - Skin Skin Exam: Dry, Intact, Normal Color, Warm Results - Vital Signs Recent Vital Signs: Last Vital Signs Temp 97.7 F 04/01/18 12:00 Pulse 74 04/01/18 12:00 Resp 18 04/01/18 12:00 BP 129/73 04/01/18 12:00 Pulse Ox 97 04/01/18 12:00 - Labs Result Diagrams: 03/31/18 20:00 04/01/18 05:07 Labs: Laboratory Results - last 24 hr 03/31/18 03/31/18 03/31/18 20:00 20:00 20:05 WBC 10.1 RBC 4.54 Hgb 14.1 Hct 41.6 MCV 91.8 MCH 31.0 MCHC 33.8 RDW 13.4 Plt Count 190 MPV 8.7 Neut % (Auto) 69.6 Lymph % (Auto) 21.7 [place] % (Auto) 7.0 Eos % (Auto) 1.2 Baso % (Auto) 0.5 Neut # (Auto) 7.1 H Lymph # (Auto) 2.2 [place] # (Auto) 0.7 Eos # (Auto) 0.1 Baso # (Auto) 0.1 PT INR APTT Sodium 140 Potassium 4.6 Chloride 103 Carbon Dioxide 25 Anion Gap 17 BUN 22 H Creatinine 1.7 H Est GFR ( Amer) 49 Est GFR (Non-Af Amer) 40 POC Glucose (mg/dL) Random Glucose 278 H Lactic Acid Calcium 10.2 Phosphorus Magnesium Troponin I < 0.0120 TSH 3rd Generation Blood Type O POSITIVE Antibody Screen Negative BBK History Checked No verified bt 03/31/18 03/31/18 04/01/18 20:30 22:55 05:07 WBC RBC Hgb Hct MCV MCH MCHC RDW Plt Count MPV Neut % (Auto) Lymph % (Auto) [place] % (Auto) Eos % (Auto) Baso % (Auto) Neut # (Auto) Lymph # (Auto) [place] # (Auto) Eos # (Auto) Baso # (Auto) PT 12.1 INR 1.1 APTT 32.4 Sodium 143 Potassium 3.9 Chloride 111 H Carbon Dioxide 24 Anion Gap 12 BUN 23 H Creatinine 1.1 Est GFR ( Amer) > 60 Est GFR (Non-Af Amer) > 60 POC Glucose (mg/dL) 137 H Random Glucose 136 H Lactic Acid Calcium 8.8 Phosphorus 4.1 Magnesium 1.8 Troponin I 0.4700 H* TSH 3rd Generation 2.15 Blood Type Antibody Screen BBK History Checked 04/01/18 04/01/18 04/01/18 05:07 05:27 09:55 WBC RBC Hgb Hct MCV MCH MCHC RDW Plt Count MPV Neut % (Auto) Lymph % (Auto) [place] % (Auto) Eos % (Auto) Baso % (Auto) Neut # (Auto) Lymph # (Auto) [place] # (Auto) Eos # (Auto) Baso # (Auto) PT INR APTT Sodium Potassium Chloride Carbon Dioxide Anion Gap BUN Creatinine Est GFR ( Amer) Est GFR (Non-Af Amer) POC Glucose (mg/dL) 137 H Random Glucose Lactic Acid 0.6 L Calcium Phosphorus Magnesium Troponin I 0.2770 H* TSH 3rd Generation Blood Type Antibody Screen BBK History Checked 04/01/18 10:41 WBC RBC Hgb Hct MCV MCH MCHC RDW Plt Count MPV Neut % (Auto) Lymph % (Auto) [place] % (Auto) Eos % (Auto) Baso % (Auto) Neut # (Auto) Lymph # (Auto) [place] # (Auto) Eos # (Auto) Baso # (Auto) PT INR APTT Sodium Potassium Chloride Carbon Dioxide Anion Gap BUN Creatinine Est GFR ( Amer) Est GFR (Non-Af Amer) POC Glucose (mg/dL) 259 H Random Glucose Lactic Acid Calcium Phosphorus Magnesium Troponin I TSH 3rd Generation Blood Type Antibody Screen BBK History Checked Assessment & Plan (1) Supraventricular tachycardia Assessment and Plan: EP evaluation for possible ablation BB Status: Acute Priority: High (2) NSTEMI (non-ST elevated myocardial infarction) Assessment and Plan: asa, bb, statins ischemic w/u possibly wednesday Status: Acute (3) Lightheadedness Status: Acute (4) Paroxysmal A-fib Assessment and Plan: hold eliquis Status: Acute (5) Diabetes mellitus Status: Chronic (6) HTN (hypertension) Status: Chronic
[2018-04-02 08:23] VITALS: RESP 18; TEMP 98.5
[2018-04-02] MEDS: Metoprolol Succinate 100 mg XL Tab PO SCH (08:48)
--- NOTE | 2018-04-02 11:31 | CP.PCM.DIS ---
Provider - Provider Date of Admission: 03/31/18 21:08 Attending physician: Asim Tillman Primary care physician: Dr. Abdi Consults: Cardiology consult Time Spent in preparation of Discharge (in minutes): 10 Hospital Course - Lab Results Lab Results: Most Recent Lab Values WBC 10.1 K/uL (4.8-10.8) 03/31/18 20:00 RBC 4.54 Mil/uL (4.40-5.90) 03/31/18 20:00 Hgb 14.1 g/dL (12.0-18.0) 03/31/18 20:00 Hct 41.6 % (35.0-51.0) 03/31/18 20:00 MCV 91.8 fl (80.0-94.0) 03/31/18 20:00 MCH 31.0 pg (27.0-31.0) 03/31/18 20:00 MCHC 33.8 g/dL (33.0-37.0) 03/31/18 20:00 RDW 13.4 % (11.5-14.5) 03/31/18 20:00 Plt Count 190 K/uL (130-400) 03/31/18 20:00 MPV 8.7 fl (7.2-11.7) 03/31/18 20:00 Neut % (Auto) 69.6 % (50.0-75.0) 03/31/18 20:00 Lymph % (Auto) 21.7 % (20.0-40.0) 03/31/18 20:00 [place] % (Auto) 7.0 % (0.0-10.0) 03/31/18 20:00 Eos % (Auto) 1.2 % (0.0-4.0) 03/31/18 20:00 Baso % (Auto) 0.5 % (0.0-2.0) 03/31/18 20:00 Neut # (Auto) 7.1 K/uL (1.8-7.0) H 03/31/18 20:00 Lymph # (Auto) 2.2 K/uL (1.0-4.3) 03/31/18 20:00 [place] # (Auto) 0.7 K/uL (0.0-0.8) 03/31/18 20:00 Eos # (Auto) 0.1 K/uL (0.0-0.7) 03/31/18 20:00 Baso # (Auto) 0.1 K/uL (0.0-0.2) 03/31/18 20:00 PT 12.1 Seconds (9.8-13.1) 03/31/18 20:30 INR 1.1 (0.9-1.2) 03/31/18 20:30 APTT 32.4 Seconds (25.6-37.1) 03/31/18 20:30 Sodium 143 mmol/l (132-148) 04/01/18 05:07 Potassium 3.9 MMOL/L (3.6-5.0) 04/01/18 05:07 Chloride 111 mmol/L (98-107) H 04/01/18 05:07 Carbon Dioxide 24 mmol/L (22-30) 04/01/18 05:07 Anion Gap 12 (10-20) 04/01/18 05:07 BUN 23 mg/dl (9-20) H 04/01/18 05:07 Creatinine 1.1 mg/dl (0.8-1.5) 04/01/18 05:07 Est GFR ( Amer) > 60 04/01/18 05:07 Est GFR (Non-Af Amer) > 60 04/01/18 05:07 POC Glucose (mg/dL) 201 mg/dL (65-110) H 04/02/18 11:06 Random Glucose 136 mg/dL (75-110) H 04/01/18 05:07 Lactic Acid 0.6 MMOL/L (0.7-2.1) L 04/01/18 05:07 Calcium 8.8 mg/dL (8.4-10.2) 04/01/18 05:07 Phosphorus 4.1 mg/dl (2.5-4.5) 04/01/18 05:07 Magnesium 1.8 MG/DL (1.6-2.3) 04/01/18 05:07 Troponin I 0.2770 ng/mL (0.00-0.120) H* 04/01/18 09:55 TSH 3rd Generation 2.15 mIU/ML (0.46-4.68) 04/01/18 05:07 Blood Type O POSITIVE 03/31/18 20:00 Antibody Screen Negative 03/31/18 20:00 BBK History Checked No verified bt 03/31/18 20:00 - Hospital Course Hospital Course: 68 years old male with hx of HTN, DM II, SVT and Paroxysmal Atrial Fibrillation , came with a one hour hx of Palpitation, dizziness, Blurred vision and SOB beginning at rest. In the ED the EKG showed a HR was 158/min , hypotensive. EKG showed SVT , the patient was treated With Adenosine 6mg and then 12mg. w/c broke the SVT.He was placed under observation in telemetry and cardiology and electrophysiology was consulted. Patient will need cardiac cath and possible ablation . Plan to transfer to [facility]. Arrangem,ents made by Dr. Dowling. At present patient is hemodynamically stable,SR on monitor , denies any CP or SOB, 1. SVT, recurrent Converted back to SR with adenosine TSH and electrolytes are normal Continue Metoprolol Cardio and cardiophysiology consulted ECHO 12/13/17 showed LV function normal LVEF 55% Will need cardiac cathj and ablation . Transfer to [facility] 2. Troponin Elevation proc sec to demand ischemia due to SVT/Hypotension Cardiology consuled Dr Dowling Will need Cardiac cath 3. DM II with hyperglycemia Regular insulin Sliding scale according to accucheck cont Glucotrol d/c Metformin as pt may need Cardiac cath 4. Acute Kidney Injury likely ATN , improved pt had low BP d/c Metformin improved with IVF hydration from 1.7 to 1.1 5. Paroxysmal A Fib on Metoprolol for Rate control Apixaban as anticoagulant Sinus rhythm at present 6. DVT prophylaxis: The patient is on Apixaban Discharge Exam - Head Exam Head Exam: ATRAUMATIC, NORMAL INSPECTION, NORMOCEPHALIC - Eye Exam Eye Exam: EOMI, Normal appearance, PERRL Pupil Exam: NORMAL ACCOMODATION - ENT Exam ENT Exam: Mucous Membranes Moist, Normal Exam - Neck Exam Neck exam: Full Rom, Normal Inspection - Respiratory Exam Respiratory Exam: Clear to PA & Lateral, NORMAL BREATHING PATTERN. absent: Rales, Rhonchi, Wheezes - Cardiovascular Exam Cardiovascular Exam: REGULAR RHYTHM, RRR, +S1, +S2. absent: JVD - GI/Abdominal Exam GI & Abdominal Exam: Normal Bowel Sounds, Soft. absent: Distended, Guarding, Rebound, Tenderness - Rectal Exam Rectal Exam: Deferred - Extremities Exam Extremities exam: normal capillary refill, normal inspection, pedal pulses present - Back Exam Back exam: NORMAL INSPECTION - Neurological Exam Neurological exam: Alert, CN II-XII Intact, Oriented x3, Reflexes Normal - Psychiatric Exam Psychiatric exam: Normal Affect, Normal Mood - Skin Skin Exam: Dry, Intact, Normal Color, Warm Discharge Plan - Follow Up Plan Condition: IMPROVED Disposition: Trans to Other Acute Care Hosp Patient education suggested?: Yes Referrals: Mariano Dowling MD [Staff Provider] -
[2018-04-02 12:36] VITALS: BP 146/80; PULSE 64; O2SAT 97
== END 2018-04-02 14:40 | disposition short-term general hospital (02) ==
LOC: H.ER 19:36 → H.ERHOLD 21:08 → H.TEL 22:40
PROVIDERS: ADMIT Internal Medicine; ATTEND Internal Medicine
DX: I21.4 Non-ST elevation (NSTEMI) myocardial infarction (principal); I47.1 Supraventricular tachycardia; I48.0 Paroxysmal atrial fibrillation; N17.0 Acute kidney failure with tubular necrosis; Z79.01 Long term (current) use of anticoagulants; Z79.4 Long term (current) use of insulin; Z87.891 Personal history of nicotine dependence; E78.5 Hyperlipidemia, unspecified; K57.90 Diverticulosis of intestine, part unspecified, without perforation or abscess without bleeding; R06.02 Shortness of breath; Z79.84 Long term (current) use of oral hypoglycemic drugs; Z79.899 Other long term (current) drug therapy; I95.9 Hypotension, unspecified; R00.2 Palpitations; R42 Dizziness and giddiness; R79.89 Other specified abnormal findings of blood chemistry; E11.65 Type 2 diabetes mellitus with hyperglycemia; E78.00 Pure hypercholesterolemia, unspecified; I10 Essential (primary) hypertension
CPT/HCPCS: 36415; 71045; 80048; 82948; 83605; 83735; 84100; 84443; 84484; 85025; 85610; 85730; 86850; 86900; 93005; 96365; 96375; 99282; G0378; J0153; J3475; J7030